=== PATIENT | male | born 1965 | race Caucasian/White ===

== ENCOUNTER → 2021-02-14 | Outpatient (CLI) | payer MEDICAID ==
--- NOTE | 2021-02-14 18:40 | CARD ---
MR#: [id number] Date of Study: 02/14/2021 Ordering Physician: ANDREA DOVE, Referring Physician: ANDREA DOVE, Tech: Dank Mckeon [facility] APPROVED REPORT EXAM: Two-dimensional and M-mode echocardiogram with Doppler and color Doppler. INDICATION Dyspnea RISK FACTORS Hypertension Obesity Diabetes 2D DIMENSIONS Left Atrium(2D)3.6 (1.6-4.0cm)IVSd1.0 (0.7-1.1cm) Aortic Root(2D)3.5 (2.0-3.7cm)LVDd4.2 (3.9-5.9cm) LVOT Diameter2.3 (1.8-2.4cm)PWd1.2 (0.7-1.1cm) LVDs2.4 (2.5-4.0cm)FS (%) 43.7 % SV59.5 ml Aortic Valve AoV Peak Robbin.110.3cm/sAoV VTI16.9cm AO Peak GR.4.9mmHgLVOT Peak Robbin.74.0cm/s AO Mean GR.3mmHgAVA (VMAX)2.90cm2 Mitral Valve MV E Ubascgwr21.3cm/sMV E Peak Gr.3mmHg MV DECEL [id number] A Wzbcygqu81.9cm/s MV E Mean Gr.1mmHgE/A Ratio0.7 Pulmonary Valve PV Peak Touyyuvn476.6cm/s Tricuspid Valve TR P. Fidcggvc776dp/sTR Peak Gr.23mmHg Pulmonary Vein S1 Owddnlja68.3cm/sD2 Vthijdhr92.6cm/s LEFT VENTRICLE The left ventricle is normal size. There is normal left ventricular wall thickness. The left ventricu lar systolic function is normal and the ejection fraction is within normal range. The Ejection Fracti on is 55-60%. There is normal LV segmental wall motion. Transmitral Doppler flow pattern is Grade I-a bnormal relaxation pattern. No left ventricle thrombus noted on this study. There is no ventricular s eptal defect visualized. There is no left ventricular aneurysm. There is no mass noted in the left ve ntricle. RIGHT VENTRICLE The right ventricle is normal size. There is normal right ventricular wall thickness. The right ventr icular systolic function is normal. ATRIA The left atrium size is normal. The right atrium size is normal. The interatrial septum is intact wit h no evidence for an atrial septal defect or patent foramen ovale as noted on 2-D or Doppler imaging. AORTIC VALVE The aortic valve is normal in structure and function. Doppler and Color Flow revealed no significant aortic regurgitation. There is no significant aortic valvular stenosis. There is no aortic valvular v egetation. MITRAL VALVE The mitral valve is normal in structure and function. There is no evidence of mitral valve prolapse. There is no mitral valve stenosis. Doppler and Color Flow revealed no mitral valve regurgitation note d. TRICUSPID VALVE The tricuspid valve is normal in structure and function. Doppler and Color Flow revealed trace tricus pid regurgitation. There is no tricuspid valve prolapse or vegetation. There is no tricuspid valve st enosis. PULMONIC VALVE The pulmonary valve is normal in structure and function. Doppler and Color Flow revealed no pulmonic valvular regurgitation. There is no pulmonic valvular stenosis. GREAT VESSELS The aortic root is normal in size. The ascending aorta is normal in size. The pulmonary artery is nor mal. The IVC is normal in size and collapses >50% with inspiration. PERICARDIAL EFFUSION There is no pleural effusion. There is no evidence of significant pericardial effusion. Critical Notification Critical Value: No <Conclusion> The left ventricle is normal size. The left ventricular systolic function is normal and the ejection fraction is within normal range. The Ejection Fraction is 55-60%. There is normal LV segmental wall motion. There is normal left ventricular wall thickness. Doppler and Color Flow revealed no significant aortic regurgitation. There is no significant aortic valvular stenosis. Doppler and Color Flow revealed no mitral valve regurgitation noted. Doppler and Color Flow revealed trace tricuspid regurgitation. Signed by : Jonatan Doe MD Electronically Approved : 02/14/2021 18:39:51
== END ==
LOC: ECHO 08:41
PROVIDERS: ATTEND Family Medicine
DX: R06.02 Shortness of breath (principal)
CPT/HCPCS: 93306

== ENCOUNTER 2021-03-26 09:29 | Outpatient (CLI) | payer MEDICAID ==
[~2021-03-26] VITALS: Ht 182.9 cm; Wt 78.6 kg
[2021-03-26] VITALS (10 sets, daily range): BP systolic 146–177; BP diastolic 73–110
[~2021-03-26 09:29] MED LIST: IODIXANOL 320 MG/ML 100 ML VIAL. ONE; LIDOCAINE 1% Multi-Dose 20 ML VIAL. ONE
[2021-03-26] MEDS ORDERED: METF10007 PO (10:07)
[2021-03-26] MEDS ORDERED: LISI20TA18 PO (10:07)
[2021-03-26] MEDS ORDERED: ATOR40TA59 PO (10:07)
[2021-03-26] MEDS ORDERED: HYDR-2145 PO (10:07)
[2021-03-26 10:16] LABS: HEMATOCRIT 40.4 % (39.0-53.0); HEMOGLOBIN 14.2 g/dL (13.0-17.5); RED BLOOD COUNT 4.48 x10^6/uL (4.30-5.70); RED CELL DISTRIBUTION WIDTH 14.5 % (11.5-14.5); WHITE BLOOD COUNT 5.5 x10^3/uL (4.0-11.0)
[2021-03-26 10:25] LABS: PROTHROMBIN TIME PATIENT 13.8 SEC (11.7-14.0)
[2021-03-26 10:34] LABS: CALCIUM 9.1 mg/dL (8.5-10.1); CREATININE 1.1 mg/dL (0.7-1.3); GFR 69.5; POTASSIUM 4.5 mmol/L (3.5-5.1)
[2021-03-26] MEDS ORDERED: fentaNYL PF VIAL 100 MCG/2 ML VIAL ONE (10:38)
[2021-03-26] MEDS ORDERED: MIDAZOLAM HCL/PF 2 MG/2 ML VIAL. ONE (10:38)
[2021-03-26] MEDS ORDERED: fentaNYL PF VIAL 100 MCG/2 ML VIAL IV ONE (11:15)
[2021-03-26] MEDS ORDERED: LIDOCAINE 1% Multi-Dose 20 ML VIAL. INJ ONE (11:15)
[2021-03-26] MEDS ORDERED: IODIXANOL 320 MG/ML 100 ML VIAL. IART ONE (11:15)
[2021-03-26] MEDS ORDERED: MIDAZOLAM HCL/PF 2 MG/2 ML VIAL. IV ONE (11:15)
[2021-03-26] MEDS ORDERED: CONTRAST GIVEN. MC PRN (11:30)
--- NOTE | 2021-03-26 12:28 | PDOC ---
MODERATE SEDATION ASSESSMENT RISKS/ALTERNATIVES Risks/Alternatives Risks and alternatives of this type of sedation and procedure discussed with: RISK/ALTERNATIVES: Patient H & P ON CHART H & P H & P on chart and reviewed for co-morbid conditions and appropriate labs. H&P ON CHART: Yes STATUS PREG STATUS ASSESSED: N/A MEDS/ALLERGIES REVIEWED Meds/Allergies Reviewed Medications and Allergies including time and route of recently administered narcotics and sedatives. MEDS/ALLERGIES REVIEWED: Yes ASA RATING ASA RATING: II AIRWAY ASSESSMENT Airway Assessment Airway patency, oral function limitations, presence of caps, crowns, dentures, partials, and ability to extend neck assessed. AIRWAY ASSESSMENT: Yes MALLAMPATI SCORE MALLAMPATI SCORE: II PRE-SEDATION ASSESSMENT PRE-SEDATION ASSESSMENT: Yes YESENIA GUZMAN MD Mar 26, 2021 12:28
[2021-03-26] MEDS ORDERED: IV 1/2 NORMAL SALINE 1,000 ML IV SCH (12:30)
--- NOTE | 2021-03-26 12:37 | CARD ---
MR#: [id number] Date of Study: 03/26/2021 Ordering Physician: YESENIA FLEMING, Referring Physician: YESENIA FLEMING, Tech: RT Alejandro(R) APPROVED REPORT Technologist: RT Alejandro(R) Nurse: Kaye Baca RN Procedure(s) performed: Right and left heart catheterization, selective coronary angiography and left ventriculography Sedation Time: 36 Minutes Dose: 63 Gycm2 Fluoro Time: 5.5 Minutes Contrast: 108 mL Visipaque INDICATION The indication(s) include : Refractory and progressive dyspnea on exertion concerning for unstable an elliot. [facility] Clinical Frailty Scale [facility] Clinical Frailty Scale: Managing Well Heart Failure Heart Failure: No CASE TECHNIQUE IV conscious sedation was used throughout procedure with appropriate monitoring and was performed in the presence of a registered nurse who was an independent trained observer other than the physician p erforming the procedure. During this case, Fluoroscopy and low osmolar contrast were used for imaging . Specimen(s) Removed: No Estimated Blood loss: 20 cc's. PROCEDURE NARRATIVE After explaining the risk, benefits and alternative options, informed consent was obtained from patie nt. Patient was brought to the cardiac Patient Admitting Representative and his right groin was prepped and draped in the us ual fashion. 20 cc of 2% lidocaine was infiltrated into the skin and subcutaneous tissues for local anesthesia. Arterial and venous accesses were obtained in the right common femoral artery and vein r espectively and 6 and 8 [place] sheaths inserted. A 7.5 [place] Madison-Rudolph catheter was then advanced u nder fluoroscopy guidance and intracardiac pressures, oxygen saturations and cardiac output by Crys m ethod measured. Subsequently, 6 [place] JL4 and 6 [place] JR4 catheters were used to perform selective angiography of the left and right coronary arteries. 6 [place] pigtail catheter was used to perform left ventriculography. Patient tolerated the procedure well. Hemostasis was achieved using Angio-Se al and manual compression. There were no immediate complications. FINDINGS A. RIGHT HEART CATHETERIZATION 1. Intracardiac pressures: Mean right atrial pressure 6 mmHg, right ventricular pressure 31/6 mmHg, pulmonary artery pressure 25/8 mmHg with a mean PA pressure 14 mmHg and pulmonary capillary wedge pre ssure 10 mmHg. Normal right and left-sided filling pressures without any pulmonary hypertension. 2. Oxygen saturations: Right atrium 72.5%, pulmonary artery 74.5%, femoral arterial sheath 96.2%. N o evidence of intracardiac shunt. 3. Cardiac output by Crys method 5.85 L/min. B. LEFT HEART CATHETERIZATION 1. Hemodynamics: Normal left ventricular end-diastolic pressure of 11 mmHg. No pullback gradient ac ross the aortic valve. 2. Left ventriculography: Normal left ventricle systolic function with ejection fraction estimated a t 55%. No significant mitral regurgitation seen. 3. Coronary angiography: a. The left main coronary artery arose from the left sinus of Valsalva, gave rise to the left anteri or descending and left circumflex arteries and did not show any significant stenosis. b. The left anterior descending artery did not show any significant stenosis. c. The left circumflex artery did not show any significant stenosis. d. The right coronary artery was a large and dominant vessel arising from the right sinus of Valsalv a that did not show any significant stenosis. Conclusion 1. No significant coronary artery disease 2. Normal left ventricular systolic function with ejection fraction estimated at 55% 3. Normal right and left-sided filling pressures without any pulmonary hypertension 4. No evidence of intracardiac shunt Recommendations Cardiovascular risk factor modification and regular exercise regimen Signed by : Yesenia Fleming, Electronically Approved : 03/26/2021 12:36:30
--- NOTE | 2021-03-26 14:19 | NUR ---
Discharge Note: [facility] Discharge instructions and discharge home medications reviewed with Patient and a copy given. All questions have been answered and understanding verbalized. The following instructions and handouts were given: MODERATE SEDATION AND GROIN SITE CARE. Discontinued RIGHT PIV, NO COMPLICATIONS. RIGHT GROIN SITE UNCHANGED AND DRESSING INTACT. Patient discharged to HOME VIA PRIVATE VEHICLE.
== END 2021-03-26 14:15 | disposition home or self-care (01) ==
LOC: CCL 09:29
PROVIDERS: ATTEND Internal Medicine Cardiovascular Disease
DX: R06.09 Other forms of dyspnea (principal); I10 Essential (primary) hypertension; E78.00 Pure hypercholesterolemia, unspecified; E11.9 Type 2 diabetes mellitus without complications; M19.90 Unspecified osteoarthritis, unspecified site; F41.9 Anxiety disorder, unspecified; Z87.891 Personal history of nicotine dependence; Z79.82 Long term (current) use of aspirin; Z79.84 Long term (current) use of oral hypoglycemic drugs; Z79.899 Other long term (current) drug therapy; Z98.890 Other specified postprocedural states
CPT/HCPCS: 36415; 80048; 85027; 85610; 93460; 99152; 99153; C1760; C1769; C1773; C1894; J1644; J2250; J3010; J3490; Q9967; G0269

== ENCOUNTER → 2021-05-20 | Outpatient (CLI) | payer MEDICAID ==
[2021-03-26 13:50] VITALS: BP 148/78
[~2021-05-20] MED LIST changes: +ATOR40TA59 PO; +HYDR-2145 PO; -IODIXANOL 320 MG/ML 100 ML VIAL. ONE; -LIDOCAINE 1% Multi-Dose 20 ML VIAL. ONE; +LISI20TA18 PO; +METF10007 PO
--- NOTE | 2021-05-21 12:43 | SLEEP ---
DATE OF STUDY: 05/20/2021 HOME SLEEP STUDY ATTENDING PHYSICIAN: Dr. Mitch Dove. The patient is 55 years old who weighs 275 pounds with a BMI of 37.3. The patient's Jackson score was 3. The patient underwent home sleep study performed by [facility]. Total recording time was 491 minutes. During the night study, the patient had 87 central apneas, 12 obstructive apneas, 28 mixed apneas and 158 hypopneas. The patient's AHI was 35 per hour. Nocturnal oximetry study revealed an average oxygen saturation of 91% with a lowest of 80%. 114 minutes were spent with oxygen saturation less than 90%. Mean heart rate 84 beats per minute. IMPRESSION: 1. Severe obstructive sleep apnea at an AHI of 35 per hour. 2. Nocturnal hypoxia secondary to obstructive sleep apnea. RECOMMENDATIONS: 1. The patient will benefit from in-lab CPAP titration study. Alternatively home auto CPAP can be arranged. 2. Once the patient is optimally treated with CPAP, then follow up in 4-6 weeks to assess compliance and to document clinical improvement. 3. Weight loss is strongly advised. 4. Avoid [employer] depressants. 5. Cautioned regarding driving until symptoms of sleep apnea resolve with above recommendation. DON DR: Manjula TID: [id number] CC: MITCH DOVE MD
== END ==
LOC: RT 10:56
PROVIDERS: ATTEND Internal Medicine Pulmonary Disease
DX: G47.33 Obstructive sleep apnea (adult) (pediatric) (principal); G47.34 Idiopathic sleep related nonobstructive alveolar hypoventilation
CPT/HCPCS: G0399

== ENCOUNTER → 2021-06-11 | Outpatient (CLI) | payer MEDICAID ==
[2021-03-26 13:50] VITALS: BP 148/78
--- NOTE | 2021-06-12 09:15 | SLEEP ---
DATE OF STUDY: 06/11/2021 SLEEP STUDY ATTENDING PHYSICIAN: Mitch Dove MD REFERRING PHYSICIAN: Denis Espinosa MD The patient is a 55-year-old who weighs 285 pounds with a BMI of 39. The patient's [place] score was 4. The patient had a previous sleep study and was found to have severe KEN at an AHI of 35 per hour. This was a home study. The patient was referred for in-lab CPAP titration study. During the night study, the patient spent 448 minutes in bed, but slept for only 167 minutes with a low sleep efficiency of 38%. Sleep latency was 24 minutes with REM latency of 413 minutes. Sleep architecture showed increased stage 1 and stage 2 sleep, absent slow wave and reduced REM sleep, which was only 3% of total sleep time. EKG monitoring revealed an average heart rate of 95 beats per minute. No sustained arrhythmias observed; however, there were PACs seen. The rhythm was irregular at times and possible atrial fibrillation. No significant PLMS seen. The patient was started on CPAP at a pressure of 5 cm water and titrated up to 9 cm water. At the final pressure, the patient slept for 43 minutes. The patient had supine, but no REM sleep. The patient's AHI was reduced to 6 per hour, mostly secondary to leak. The patient had oxygen saturation 88% and above at the final pressure. The patient used a large size full face mask. IMPRESSION: 1. Severe sleep apnea diagnosed by previous sleep study. 2. No significant periodic limb movements of sleep. 3. he patient had poor sleep efficiency of 38% RECOMMENDATIONS: 1. CPAP at 9 cm water should be used on a nightly basis. 2. Follow up in 4-6 weeks to assess compliance with CPAP and to document clinical improvement. 3. Weight loss is strongly advised. 4. Avoid [employer] depressants. 5. Cautioned regarding driving until symptoms of sleep apnea resolve with the use of CPAP. 6. The patient had poor sleep efficiency of 38%. If the patient's insomnia does not improve with affective use of CPAP, then the patient should be further evaluated and treated for insomnia according to the etiology. KUMAR DR: Manjula TID: [id number] CC: MITCH DOVE MD [facility]
== END ==
LOC: RT 18:52
PROVIDERS: ATTEND Family Medicine
DX: G47.33 Obstructive sleep apnea (adult) (pediatric) (principal)
CPT/HCPCS: 95811